=== PATIENT | male | born 1995 | race Caucasian/White ===

== ENCOUNTER 2021-07-03 09:04 | Emergency (ER) | payer OTHER ==
[~2021-07-03 09:04] MED LIST: CLEOCIN 150MG150 MG PO
[2021-07-03 11:06] LABS: HEMOGLOBIN 13.1 gm/dl (14.0-17.5); RED BLOOD COUNT 4.89 M/UL (4.20-5.50); WHITE BLOOD COUNT 12.4 K/UL (4.5-11.0)
[2021-07-03] MEDS ORDERED: CEPHALEXIN500 M1 PO (13:06)
[2021-07-03] MEDS ORDERED: BACTRIM DS TAB1 EACH PO (13:06)
== END 2021-07-03 14:06 | disposition home or self-care (01) ==
LOC: ER1 09:04
PROVIDERS: Nurse Practitioner
DX: L03.114 Cellulitis of left upper limb (principal); Z86.19 Personal history of other infectious and parasitic diseases; F17.210 Nicotine dependence, cigarettes, uncomplicated; Z91.030 Bee allergy status
CPT/HCPCS: 73030; 73201; 80076; 80307; 81001; 82550; 82553; 83605; 84484; 85025; 85652; 86140; 87040; 93005; 99284; J0696; Q9967